=== PATIENT | female | born 1970 | race Caucasian/White ===

== ENCOUNTER → 2019-01-30 | Outpatient (CLI) | payer MEDICAID, SELFPAY ==
--- NOTE | 2019-01-30 09:43 | NEURO ---
NCS and/or EMG Patient Report Ordering Doctor: Lucia Hamlin DATE OF SERVICE: 01/30/19 This is a left upper extremity nerve conduction study performed on this 48-year-old female with a history of pain numbness in the left hand for 1 year. Is a history of diabetes with an unknown hemoglobin A1c. Left upper extremity sensory motor nerve conduction studies performed. The median motor and sensory distal latencies are prolonged with reduction of amplitude and conduction velocities. The ulnar motor and sensory in the radial sensory responses are normal. The median F wave is prolonged compared to the ulnar F-wave. Impression: Abnormal nerve conduction study of the left upper extremity consistent with severe carpal tunnel syndrome at the wrist.
== END | disposition home or self-care (01) ==
LOC: PSN 06:34
PROVIDERS: Family Provider Student in an Organized Health Care Education/Training Program; PCP Student in an Organized Health Care Education/Training Program; Referring Provider Physician Assistant; Visit Provider Physician Assistant
DX: R20.2 Paresthesia of skin (principal)
CPT/HCPCS: 95909